=== PATIENT | male | born 2000 | race Caucasian/White ===

== ENCOUNTER 2023-01-17 22:50 | Emergency (ER) | payer OTHER ==
[~2023-01-17] VITALS: Ht 172.7 cm; Wt 93.2 kg
[2023-01-17 22:55] VITALS: TEMP 100.4
[2023-01-18 00:53] LABS: APPEARANCE,URINE CLEAR (CLEAR); BILIRUBIN,URINE NEGATIVE (NEGATIVE); GLUCOSE, URINE (UA) NEGATIVE (NEGATIVE); KETONES,URINE TRACE mg/dL (NEGATIVE); LEUKOCYTE ESTERASE ,URINE NEGATIVE (NEGATIVE); NITRATE,URINE NEGATIVE (NEGATIVE); OCCULT BLOOD,URINE NEGATIVE (NEGATIVE); PH,URINE 6.5 (5.0-8.0); PROTEIN,URINE 100-200,SEE CONFIRM mg/dL (NEGATIVE); SPECIFIC GRAVITIY, URINE 1.039 (1.003-1.030)
[2023-01-18 01:32] LABS: SULFOSALICYLIC ACID,URINE 2+ (Negative)
[2023-01-18 01:34] LABS: BACTERIA,URINE Rare /HPF (None Seen); RBC,URINE 0-2 /HPF (0-2); SQUAMOUS EPITHELIAL CELL,UR Few /LPF (None Seen); WBC,URINE 0-2 /HPF (0-5)
[2023-01-18 01:35] LABS: CALCIUM OXALATE CRYSTALS,UR Many /LPF (None Seen)
[2023-01-18] MEDS ORDERED: CEPH-558 PO (02:15)
[2023-01-18] MEDS ORDERED: CLOT12CR TP (02:15)
[2023-01-18 02:49] VITALS: BP 124/73; PULSE 99; RESP 16
== END 2023-01-18 02:49 | disposition home or self-care (01) ==
LOC: EMS 22:52
DX: N47.7 Other inflammatory diseases of prepuce (principal)
CPT/HCPCS: 81001; 81002; 99283